=== PATIENT | female | born 1990 | race Two or more races ===

== ENCOUNTER 2022-12-02 12:58 | Emergency (ER) | payer SELFPAY ==
[~2022-12-02] VITALS: Ht 152.4 cm; Wt 62.7 kg
[2022-12-02 13:19] VITALS: BP 113/71
[2022-12-02 14:17] LABS: URINE HCG NEGATIVE (NEG)
[2022-12-02 14:39] LABS: CLARITY,URINE CLEAR (Clear); GLUCOSE, URINE NEGATIVE (Neg); KETONES,URINE NEGATIVE (Neg); LEUKOCYTE ESTERASE ,URINE NEGATIVE (Neg); NITRITES, URINE NEGATIVE (Neg); OCCULT BLOOD,URINE MODERATE (Neg); PROTEIN,URINE NEGATIVE (Neg); UROBILINOGEN,URINE 0.2 E.U/dL (0.2-1.0)
[2022-12-02 14:50] LABS: COLOR,URINE STRAW (Yellow); UA COLLECTION TYPE CLN CATCH MIDSTREAM
[2022-12-02 15:57] LABS: BACTERIA,URINE NONE SEEN /HPF (Neg); RBC,URINE NONE SEEN /HPF (0-2); SQUAMOUS EPITHELIAL CELL,UR FEW /LPF (FEW); WBC,URINE 0-4 /HPF (0-4)
== END 2022-12-02 15:21 | disposition home or self-care (01) ==
LOC: ER 12:58
DX: R10.31 Right lower quadrant pain (principal); Z91.040 Latex allergy status
CPT/HCPCS: 76830; 76856; 81001; 81025; 93976; 99284

== ENCOUNTER 2023-02-20 14:59 | Emergency (ER) | payer BC ==
[~2023-02-20] VITALS: Ht 152.4 cm; Wt 62.4 kg
[~2023-02-20 14:59] MED LIST: CEPH-585 PO
[2023-02-20 15:08] VITALS: BP 130/86
[2023-02-20 15:26] LABS: CLARITY,URINE CLEAR (Clear); COLOR,URINE YELLOW (Yellow); GLUCOSE, URINE NEGATIVE (Neg); KETONES,URINE NEGATIVE (Neg); LEUKOCYTE ESTERASE ,URINE NEGATIVE (Neg); NITRITES, URINE NEGATIVE (Neg); OCCULT BLOOD,URINE TRACE-INTACT (Neg); PROTEIN,URINE NEGATIVE (Neg); UROBILINOGEN,URINE 0.2 E.U/dL (0.2-1.0)
[2023-02-20 15:27] LABS: UA COLLECTION TYPE CLN CATCH MIDSTREAM
[2023-02-20 15:39] LABS: SQUAMOUS EPITHELIAL CELL,UR FEW /LPF (FEW)
[2023-02-20 15:41] LABS: BACTERIA,URINE FEW /HPF (Neg); RBC,URINE 0-2 /HPF (0-2); WBC,URINE 0-4 /HPF (0-4)
[2023-02-20] MEDS ORDERED: DOXYCYCLINE 100MG CAPSULE PO STA (16:08)
[2023-02-20] MEDS ORDERED: DOXY-1 PO (16:08)
[2023-02-20] MEDS ORDERED: CefTRIAXone 500MG IM Kit w/LIDOcaine IM ONE (16:10)
[2023-02-20 16:28] LABS: URINE HCG NEGATIVE (NEG)
== END 2023-02-20 16:36 | disposition home or self-care (01) ==
LOC: ER 14:59
DX: A63.8 Other specified predominantly sexually transmitted diseases (principal); N39.0 Urinary tract infection, site not specified; Z91.040 Latex allergy status; Z79.899 Other long term (current) drug therapy
CPT/HCPCS: 36415; 81001; 81025; 87491; 87591; 96372; 99283; J0696

== ENCOUNTER 2023-05-22 18:46 | Emergency (ER) | payer BC ==
[~2023-05-22] VITALS: Ht 152.4 cm; Wt 55.7 kg
[2023-05-22 19:27] LABS: BASOPHILS # (AUTO) 0.1 X10'3 (0-0.2); BASOPHILS % (AUTO) 0.8 % (0-1); EOSINOPHILS % (AUTO) 0.4 % (0-6); HEMATOCRIT 40.8 % (35.0-45.0); HEMOGLOBIN 13.6 g/dl (12.0-16.0); LYMPHOCYTES # (AUTO) 2.7 X10'3 (1.1-4.8); LYMPHOCYTES % (AUTO) 35.3 % (21-51); MEAN CORPUSCULAR HEMOGLOBIN 31.2 PG (27.0-31.0); MEAN CORPUSCULAR HGB CONC 33.2 g/dL (33.0-36.5); MEAN PLATELET VOLUME 7.2 FL (7.4-10.4); MONOCYTES # (AUTO) 0.6 X10'3 (0-0.9); MONOCYTES % (AUTO) 8.2 % (2-12); NEUTROPHILS # (AUTO) 4.2 X10'3 (1.8-7.7); NEUTROPHILS % (AUTO) 55.3 % (42-75); PLATELET COUNT 309 X10'3 (140-440); RED BLOOD COUNT 4.34 X10'6 (4.20-5.60); RED CELL DISTRIBUTION WIDTH 12.5 % (11.5-14.5); WHITE BLOOD COUNT 7.7 X10'3 (4.5-11.0)
[2023-05-22 19:29] LABS: URINE HCG NEGATIVE (NEG)
[2023-05-22] MEDS ORDERED: normal saline 1000ml 1,000 ML IV SCH (19:30)
[2023-05-22] MEDS ORDERED: magnesium 2GM in 50ml NS 50 ML IV ONE (19:30)
[2023-05-22 19:31] LABS: ALANINE AMINOTRANSFERASE 19 U/L (12-78); ALBUMIN 4.2 G/DL (3.4-5.0); ALBUMIN/GLOBULIN RATIO 1.2 (1.1-1.5); ALKALINE PHOSPHATASE 66 IU/L (46-116); ANION GAP 5 (8-16); ASPARTATE AMINO TRANSFERASE 19 U/L (10-37); BILIRUBIN,TOTAL 0.3 MG/DL (0.1-1.0); BLOOD UREA NITROGEN 14 MG/DL (7-18); BUN/CREATININE RATIO 11.3 (10.0-20.0); CALCIUM 9.5 MG/DL (8.5-10.1); CHLORIDE 103 MMOL/L (99-107); CREATININE 1.24 MG/DL (0.40-0.90); GLUCOSE 84 MG/DL (70-104); POTASSIUM 3.5 MMOL/L (3.5-5.1); SODIUM 137 MMOL/L (135-145); TOTAL CARBON DIOXIDE 28.9 MMOL/L (24-32); TOTAL PROTEIN 7.6 G/DL (6.4-8.2); eCRCL 48 ML/MIN; eGFR 51 ML/MIN
[2023-05-22 19:40] VITALS: TEMP 97.6
[2023-05-22] MEDS ORDERED: metoclopramide 5 mg/ml inj IV ONE (21:30)
[2023-05-22] MEDS ORDERED: diphenhydrAMINE 50 mg/ml inj IV ONE (21:30)
[2023-05-22 23:39] VITALS: BP 105/62; PULSE 86; RESP 16; O2SAT 99
== END 2023-05-22 23:40 | disposition home or self-care (01) ==
LOC: ER 18:46
DX: F41.9 Anxiety disorder, unspecified (principal); G43.909 Migraine, unspecified, not intractable, without status migrainosus; R00.2 Palpitations; Z91.040 Latex allergy status; Z79.2 Long term (current) use of antibiotics; Z98.51 Tubal ligation status
CPT/HCPCS: 36415; 80053; 81025; 85025; 93005; 99284; J1200; J2765; J3475; J7030

== ENCOUNTER 2023-05-28 18:53 | Emergency (ER) | payer BC ==
[~2023-05-28] VITALS: Ht 152.4 cm; Wt 52.3 kg
[2023-05-28 18:55] VITALS: BP 125/82; PULSE 96; RESP 16; TEMP 97.6; O2SAT 100
[2023-05-28] MEDS ORDERED: SUMAtriptan 25 MG tablet PO ONE (19:05)
[2023-05-28] MEDS ORDERED: ketorolac tromethamine 15mg/ml inj. IM ONE (19:05)
[2023-05-28] MEDS ORDERED: HYDR-3686 PO (19:07)
[2023-05-28] MEDS ORDERED: TRAZ-251 PO (19:07)
[2023-05-28] MEDS ORDERED: SUMA25TA35 PO (19:07)
== END 2023-05-28 21:45 | disposition home or self-care (01) ==
LOC: ER 18:53
DX: G47.00 Insomnia, unspecified (principal); R51.9 Headache, unspecified; Z91.040 Latex allergy status; Z79.2 Long term (current) use of antibiotics; Z79.899 Other long term (current) drug therapy; Z98.51 Tubal ligation status
CPT/HCPCS: 70450; 96372; 99285; J1885

== ENCOUNTER 2025-07-26 13:55 | Emergency (ER) | payer BC, MEDICAID ==
[~2025-07-26] VITALS: Ht 152.4 cm; Wt 68.9 kg
[~2025-07-26 13:55] MED LIST changes: -CEPH-585 PO; +TRAZ-251 PO
--- NOTE | 2025-07-26 14:39 | ELECTROCARDIOGRAPH REPORT ---
[facility] Test Date: 2025-07-26 Test Time: 14:00:31 Pat Name: ABBEY LUNA Department: EMERGENCY ROOM Patient ID: [id number] Room: Gender: F Certified Personal Trainer: DYLON : 1990 Requested By: NERY HENDRICKSON Order Number: [id number] Reading MD: Dr. CELIA Colon Measurements Intervals Mcintosh Rate: 98 P: 64 NH: 106 QRS: 68 QRSD: 76 T: 2 QT: 343 QTc: 438 Interpretive Statements Sinus rhythm Short NH interval Probable inferior infarct, old Electronically Signed On 07-27-2025 19:39:[address] CELIA Colon Please click the below link to view image of tracing.
[2025-07-26 14:47] LABS: MEAN PLATELET VOLUME 6.9 FL (7.4-10.4); RED CELL DISTRIBUTION WIDTH 12.8 % (11.5-14.5)
--- NOTE | 2025-07-26 14:53 | Physician Documentation ---
History of Present Illness ~ Chief Complaint: Palpitations Stated Complaint: CP SOB Time Seen by MD: 14:40 Primary Medical Doctor: DR. WESTBROOK Mode of Arrival: POV HPI 34-year-old female presents to the ED with a complaint of heart palpitations cold cough and congestion symptoms for the last week. States that she feels as though her heart is racing. 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 She is otherwise healthy denies any chest pain reports general malaise that.she has been over working herself and not sleeping well Does have a history of being hypokalemic Day of Onset: Jul 26, 2025 Medication Reconciliation Allergies: Coded Allergies: latex (Verified Allergy, Unknown, HIVES, 07/26/25) Scheduled Trazodone HCl (Trazodone HCl), 1 TAB PO HS Past Medical History Past Medical History: *ENDOCRINE* Past Surgical History: noncontributory Other Past Surgical History: Congenital adrenal hyperplasia, tubal ligation due to ectopic 2019, Alcohol Use: Occasionally Drug Use: none Lives with: Family Lives In: Home Occupation: employed Review of Systems All Other Systems at this time: Reviewed and Negative ROS As stated above in the HPI, otherwise all systems are reviewed and negative. Physical Exam Vital Signs: Temperature: 97.3, Source: Temporal, Heart Rate: 92, Respiratory Rate: 16, BP: 136/84, Pulse Oximetry: 98, Weight: 68.900 Oxygen Flow Rate: 0 Physical Exam General: Alert, no apparent distress. HEENT: PERRL, EOMI, no injection, moist mucous membranes. Neck: Full range of motion. Respiratory: Lungs clear, no respiratory distress. Chest: No accessory muscle use. Cardiovascular: Regular rate and rhythm, no murmurs. Gastrointestinal: Soft, nontender, nondistended. Bowels sounds present. Extremities: Normal range of motion, no deformity. Neurologic: Oriented x4. Psychiatric: Normal mood and affect. Skin: Normal color, warm and dry. No edema, no ecchymosis. Progress Results/Orders Results/Orders Completed Orders - ABDULAZIZ IGLESIAS NP Normal Saline 1000ml (0.9% Sodium Chlori (07/26/25 14:50) Medications Received in ER Medications (Trade) Dose Ordered Sig/Vicki Route PRN Reason Start Time Stop Time Status Last Admin Dose Admin (0.9% sodium chloride (NS) 1000ml IV soln) 2,000 ml ONCE ONCE IVB 07/26/25 14:50 07/26/25 14:51 DC 07/26/25 14:55 2,000 ML Vital Signs 07/26/25 07/26/25 07/26/25 14:24 15:29 16:06 Temp 97.3 97.3 Pulse 92 84 78 Resp 16 18 B/P (MAP) 136/84 113/73 (86) 107/63 Pulse Ox 98 100 98 O2 Flow Rate 0 0 Laboratory Tests Test 07/26/25 14:04 White Blood Count 13.1 H Red Blood Count 4.34 Hemoglobin 13.3 Hematocrit 39.9 Mean Corpuscular Volume 92.0 Mean Corpuscular Hemoglobin 30.8 Mean Corpuscular Hemoglobin Concent 33.4 Red Cell Distribution Width 12.8 Platelet Count 365 Mean Platelet Volume 6.9 L Neutrophils (%) (Auto) 83.7 H Lymphocytes (%) (Auto) 12.6 L Monocytes (%) (Auto) 3.2 Eosinophils (%) (Auto) 0.1 Basophils (%) (Auto) 0.4 Neutrophils # (Auto) 11.0 H Lymphocytes # (Auto) 1.6 Monocytes # (Auto) 0.4 Eosinophils # (Auto) 0.0 Basophils # (Auto) 0.1 CBC Comment Sodium Level 140 Potassium Level 4.2 Chloride Level 106 Carbon Dioxide Level 27.5 Anion Gap 7 L Blood Urea Nitrogen 11 Creatinine 0.65 Estimated GFR/1.73 m2 > 90 BUN/Creatinine Ratio 16.9 Glucose Level 102 Calcium Level 9.1 Troponin I High Sensitivity 4 Pro-B-Type Natriuretic Peptide 59 Albumin 3.9 HCG Beta Subunit < 1.0 Chemistry Comments Medical Decision Making Additional information obtaine: old records Findings This is not present acutely ill outside of typical cold cough congestion symptoms. she Requested a hCG test. Discussed with her that I suspect that over working herself and not getting asleep it is a large contributor to her moderate to severe upper respiratory virus symptoms Differential Dx:Considerations: Include: angina / MO, atrial dysrhythmia, atrial fibrillation, atrial flutter, MAT, PACs, PSVT, sinus tachycardia, WPW, 1st degree AV block, 2nd degree AVB-type 1, 2nd degree AVB-type 2, 3rd degree AV block, PVCs, torsades de pointes, ventricular fibrillation, ventricular tachycardia, other Differential Dx:Considerations: Unlikely anxiety/panic attack, Unlikely digoxin toxicity, Unlikely electrolyte disorder, Unlikely heart failure, Unlikely hy perthyroidism, Unlikely hyperventilation, Unlikely hypoxia, Unlikely pacemaker malfunction, Unlikely pulmonary embolus, Unlikely renal failure, Unlikely other Departure Disposition: 01 HOME / SELF CARE / HOMELESS Impression: Primary Impression: Palpitations Additional Impression: Upper respiratory virus Condition: Stable Discharge Instructions: Palpitations, [id number], Upper Respiratory Infection, Adult, [id number] Departure Forms: Excuse form Work or School Excused From: Work Excuse beginning now through the following date: Aug 05, 2025 Referrals: NO PRIMARY CARE PROVIDER (PCP) Signature Scribe Signature: g Attestation: Scribed for Abdulaziz Iglesias [employer] Program Director by Abdulaziz Gonzalez NP . 07/26/25 20:46 ABDULAZIZ IGLESIAS NP Jul 26, 2025 14:53
[2025-07-26] MEDS: normal saline 1000ML IV soln IVB ONE (14:55)
[2025-07-26 15:02] LABS: CREATININE 0.65 MG/DL (0.40-0.90); PRO BRAIN NATRIURETIC PEPTIDE 59 PG/ML (0-125); TOTAL CARBON DIOXIDE 27.5 MMOL/L (24-32); eCRCL 89 ML/MIN; eGFR > 90 ML/MIN
--- NOTE | 2025-07-26 15:27 | RADIOLOGY REPORT ---
EXAM: DI CHEST,SINGLE VIEW TECHNIQUE: Single AP radiograph of the chest CLINICAL HISTORY: CP COMPARISON: None FINDINGS/IMPRESSION: The lungs are clear. The cardiomediastinal silhouette is unremarkable. No pleural effusion or pneumothorax. No acute osseous abnormality.
[2025-07-26 15:29] VITALS: RESP 18
[2025-07-26 16:06] VITALS: BP 107/63; PULSE 78; TEMP 97.3; O2SAT 98
== END 2025-07-26 16:07 | disposition home or self-care (01) ==
LOC: ER 13:56
DX: R00.2 Palpitations (principal); J06.9 Acute upper respiratory infection, unspecified; R06.02 Shortness of breath; Z91.040 Latex allergy status; Z79.899 Other long term (current) drug therapy
CPT/HCPCS: 36415; 71045; 80048; 83880; 84484; 84702; 85025; 93005; 96360; 99285; J7030